=== PATIENT | female | born 1935 | race Caucasian/White ===

== ENCOUNTER 2016-08-29 13:22 | Day surgery (SDC) | payer OTHER ==
[~2016-08-29] VITALS: Ht 165.1 cm; Wt 95.7 kg
[~2016-08-29 13:22] MED LIST: AMIODARONE HCL200 MG PO; COLACE100 MG PO; ENDOCET 5-3251 EACH PO; FUROSEMIDE20 MG PO; IMODIUM MS REL1 EACH PO; K-DUR20 MEQ PO; LASIX40 MG PO; LEVOTHYROXINE75 MCG PO; LEXAPRO20 MG PO; LIPITOR80 MG PO; LORTAB 10-3251 EACH PO; LOW DOSE ASPIRI81 M1 PO; LOW DOSE ASPIRI81 M2 PO; MS CONTIN,ORAMO15 M1 PO; NEXIUM40 MG PO; PERCOCET 5/31 TABLET PO; PLAVIX75 MG PO; PROTONIX40 MG PO; REMERON15 M2 PO; SENNA8.6 MG PO; SEROQUEL50 MG PO; ZESTRIL,PRINIV2.5 MG PO; ZESTRIL2.5 MG PO; ZETIA10 MG PO
== END 2016-08-29 14:45 | disposition home or self-care (01) ==
LOC: PAIN 13:22 → SDC 14:00 → PAIN 14:45
DX: M47.896 Other spondylosis, lumbar region (principal); M54.16 Radiculopathy, lumbar region; I10 Essential (primary) hypertension; E78.5 Hyperlipidemia, unspecified; I44.7 Left bundle-branch block, unspecified; I25.10 Atherosclerotic heart disease of native coronary artery without angina pectoris; Z95.810 Presence of automatic (implantable) cardiac defibrillator
CPT/HCPCS: J1030; J2250; J3010; S0020

== ENCOUNTER 2016-09-05 11:55 | Day surgery (SDC) | payer OTHER ==
[~2016-09-05] VITALS: Ht 165.1 cm; Wt 95.7 kg
== END 2016-09-05 13:50 | disposition home or self-care (01) ==
LOC: PAIN 11:55 → SDC 12:30 → PAIN 12:30
PROC: 015B3ZZ Destruction of Lumbar Nerve, Percutaneous Approach (ICD-10-PCS; principal; 2016-09-05)
PROC: 015R3ZZ Destruction of Sacral Nerve, Percutaneous Approach (ICD-10-PCS; principal; 2016-09-05)
DX: M47.896 Other spondylosis, lumbar region (principal); M51.36 Other intervertebral disc degeneration, lumbar region; M46.1 Sacroiliitis, not elsewhere classified; F41.1 Generalized anxiety disorder; I10 Essential (primary) hypertension; E78.5 Hyperlipidemia, unspecified; M79.1 Myalgia; M12.88 Other specific arthropathies, not elsewhere classified, other specified site
CPT/HCPCS: J1030; J3010; S0020

== ENCOUNTER 2017-03-18 21:11 | Emergency (ER) | payer OTHER ==
[~2017-03-18] VITALS: Ht 165.1 cm; Wt 97.7 kg
[2017-03-18 23:52] VITALS: BP 138/66
== END 2017-03-19 | disposition home or self-care (01) ==
LOC: EME 21:11 → RME 21:11
DX: S90.31XA Contusion of right foot, initial encounter (principal); R60.1 Generalized edema; V00.838A Other accident with motorized mobility scooter, initial encounter; Y92.512 Supermarket, store or market as the place of occurrence of the external cause; I25.2 Old myocardial infarction; Z86.19 Personal history of other infectious and parasitic diseases
CPT/HCPCS: 73630; 99281; 99284

== ENCOUNTER → 2017-11-10 | Outpatient (CLI) | payer OTHER | END | disposition home or self-care (01) | LOC: RES 11-05 13:00 | DX: R06.00 Dyspnea, unspecified (principal) | CPT/HCPCS: 94060; 94726; 94729 ==

== ENCOUNTER 2018-03-05 11:53 | Observation (INO) | payer OTHER ==
[~2018-03-05] VITALS: Ht 162.6 cm; Wt 101.0 kg
[2018-03-05 12:36] LABS: HEMATOCRIT 38.3 % (36.0-46.0); HEMOGLOBIN 12.1 G/DL (11.9-15.5); MCHC 31.6 G/DL (30.0-36.0); MCV 94.8 FL (83-99); PLATELET COUNT 138 K/uL (156-360); RBC DIS.WIDTH-CV 15.3 % (11.8-14.6); RBC DIS.WIDTH-SD 53.5 % (39-53); RED BLOOD COUNT 4.04 M/uL (3.80-5.20); WHITE BLOOD COUNT 5.3 K/uL (4.1-10.2)
[2018-03-05 12:45] LABS: CHLORIDE 105 mEq/L (99-109); POTASSIUM 4.7 mEq/L (3.7-5.4); SODIUM 141 mEq/L (136-147)
[2018-03-05 12:47] LABS: GLUCOSE 94 mg/dL (70-99)
[2018-03-05 12:51] LABS: CREATININE 1.5 mg/dL (0.6-1.3); GFR ESTIMATE (CALCULATED) 35 mL/min/
[2018-03-05 12:52] LABS: UREA NITROGEN (BUN) 21 mg/dL (9-23)
[2018-03-05 14:14] LABS: TROP-I INTERPRETATION NEGATIVE; TROPONIN-I < 0.01 ng/mL (0.0-0.30)
[2018-03-05] MEDS ORDERED: PROTONIX40 MG PO (18:08)
[2018-03-05] MEDS ORDERED: LYRICA50 MG PO (18:09)
[2018-03-05] MEDS ORDERED: PERCOCET 7.51 TABLET PO (18:09)
[2018-03-05] MEDS ORDERED: TRAZODONE HCL50 MG PO (18:09)
[2018-03-05 22:20] LABS: TROP-I INTERPRETATION NEGATIVE; TROPONIN-I < 0.01 ng/mL (0.0-0.30)
[2018-03-05 23:20] VITALS: BP 105/52
[2018-03-06 03:11] LABS: TROP-I INTERPRETATION NEGATIVE; TROPONIN-I < 0.01 ng/mL (0.0-0.30)
[2018-03-06 03:44] VITALS: BP 105/55
[2018-03-06 07:55] VITALS: BP 111/55
[2018-03-06 08:07] LABS: THYROTROPIN (TSH) 4.2 MIU/L (0.4-5.5)
[2018-03-06 08:58] LABS: CHLORIDE 104 MEQ/L (99-109); CREATININE 1.4 MG/DL (0.6-1.3); GFR ESTIMATE (CALCULATED) 38 mL/min/; GLUCOSE 129 mg/dL (70-99); POTASSIUM 5.1 MEQ/L (3.7-5.4); SODIUM 139 MEQ/L (136-147); UREA NITROGEN (BUN) 28 mg/dL (9-23)
[2018-03-06 12:12] VITALS: BP 99/57
== END 2018-03-06 14:40 | disposition home or self-care (01) ==
LOC: EME 11:53 → 4SOUTH 20:58 → EDOF 20:58 → ENRESERV 21:27 → 4SOUTH 23:03 → ENPENDDIS 03-06 13:54 → 4SOUTH 03-06 14:40
PROVIDERS: Internal Medicine; Physician Assistant; Physician Assistant Medical
DX: R06.02 Shortness of breath (principal); I25.5 Ischemic cardiomyopathy; I25.10 Atherosclerotic heart disease of native coronary artery without angina pectoris; Z86.74 Personal history of sudden cardiac arrest; Z95.810 Presence of automatic (implantable) cardiac defibrillator; Z95.5 Presence of coronary angioplasty implant and graft; I34.0 Nonrheumatic mitral (valve) insufficiency; I12.9 Hypertensive chronic kidney disease with stage 1 through stage 4 chronic kidney disease, or unspecified chronic kidney disease; N18.9 Chronic kidney disease, unspecified; E78.5 Hyperlipidemia, unspecified; I25.2 Old myocardial infarction; E03.9 Hypothyroidism, unspecified; K21.9 Gastro-esophageal reflux disease without esophagitis; Z87.891 Personal history of nicotine dependence; Z90.49 Acquired absence of other specified parts of digestive tract; Z90.710 Acquired absence of both cervix and uterus; Z91.048 Other nonmedicinal substance allergy status; Z79.82 Long term (current) use of aspirin; Z79.02 Long term (current) use of antithrombotics/antiplatelets; Z80.0 Family history of malignant neoplasm of digestive organs; Z88.8 Allergy status to other drugs, medicaments and biological substances
CPT/HCPCS: 71046; 78582; 80048; 83880; 84443; 84484; 85027; 85379; 93005; 94640; 94799; 99281; 99285; A9540; A9567; G0378; J1644; J1940; J2920